=== PATIENT | male | born 1965 | race Two or more races ===

== ENCOUNTER → 2023-06-02 | Outpatient (CLI) | payer MEDICAID ==
[~2023-06-02] MED LIST: ALBUTEROL MEDNEB 2.5 mg/3ml NEB ONE
== END | disposition home or self-care (01) ==
LOC: RT 14:34
PROVIDERS: ATTEND Internal Medicine Pulmonary Disease
DX: R06.02 Shortness of breath (principal); R06.09 Other forms of dyspnea
CPT/HCPCS: 94060; 94727; 94729